=== PATIENT | male | born 1995 | race Caucasian/White ===

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

== ENCOUNTER → 2017-12-10 | Outpatient (CLI) | payer BC ==
--- NOTE | 2017-12-10 11:47 | Diagnostic Imaging Report ---
PROCEDURE: CT cervical spine without contrast. TECHNIQUE: Multiple contiguous axial images were obtained through the cervical spine without the use of intravenous contrast. Sagittal and coronal reformations were then performed. INDICATION: Recent surgery, neck pain Exam compared with previous dated 06/29/2016. Posterior fusion with laminar screws C3-C7 performed with extensive henrietta-screw lucencies at the C7 level compatible with their loosening, this is unchanged from the prior. There is bilateral solid ankylosis of the facets are fused from C3-4, C4-5 and C5-C6. This is a reversal of lower cervical lordosis and straightening of the spine unchanged. No acute vertebral body abnormality. No fluid collection or acute fracture. IMPRESSION: Thee is unchanged exam multilevel posterior fusion with screw lucencies bilaterally at the C7 level above the level of the solid of fusion across the facet joints. Unchanged alignment with reversal of lordosis. No acute fracture or change. Dictated by: Dictated on workstation # [id number]
== END ==
LOC: RAD 11:15
PROVIDERS: ATTEND Internal Medicine
DX: S19.9XXA Unspecified injury of neck, initial encounter (principal); Z98.1 Arthrodesis status
CPT/HCPCS: 72125

== ENCOUNTER → 2022-11-27 | Outpatient (CLI) | payer BC ==
--- NOTE | 2022-11-27 08:01 | Diagnostic Imaging Report ---
PROCEDURE: US Gallbladder. TECHNIQUE: Multiple real-time grayscale images were obtained over the right upper quadrant in various projections. INDICATION: Right upper quadrant abdominal pain with nausea and emesis FINDINGS: Grayscale imaging of the gallbladder reveals no intraluminal filling defect. There is no gallbladder wall thickening or pericholecystic fluid. No intra or extrahepatic biliary ductal dilatation is identified. No pancreatic, right renal, abdominal aortic or inferior vena caval abnormality is documented. No ascites was noted. IMPRESSION: Unremarkable right upper quadrant abdominal ultrasound. Dictated by: Dictated on workstation # [id number]
== END ==
LOC: RAD 07:24
PROVIDERS: ATTEND Registered Nurse
DX: R10.11 Right upper quadrant pain (principal); R11.2 Nausea with vomiting, unspecified; R63.0 Anorexia
CPT/HCPCS: 76705